=== PATIENT | female | born 1995 | race Caucasian/White ===

== ENCOUNTER → 2024-03-25 12:32 | Outpatient (CLI) | payer SELFPAY ==
[2024-03-25 13:17] LABS: Add Manual Diff / Slide Review NO; Basophils Absolute Auto 0 /uL (0-100); Basophils Percent Auto 0.1 % (0-2); Eosinophils Absolute Auto 100 /uL (0-450); Eosinophils Percent Auto 0.6 % (2-4); Hematocrit 39.9 % (36-46); Hemoglobin 13.5 g/dL (12.0-16.0); Lymphocytes Absolute Auto 2300 /uL (1100-4500); Lymphocytes Percent Auto 20.2 % (25-40); Mean Corpuscular HGB Conc 33.9 % (30-36); Mean Corpuscular Hemoglobin 28.8 PG (26-34); Mean Corpuscular Volume 84.8 fL (80-100); Monocytes Absolute Auto 600 /uL (0-900); Monocytes Percent Auto 5.3 % (3-14); Neutrophils Absolute Auto 8500 /uL (1500-7000); Neutrophils Percent Auto 73.8 % (50-75); Platelet Count 228 X10^3/uL (150-400); Red Cell Distribution Width 13.8 % (11.6-14.8); White Blood Cell Count 11.6 X10^3/uL (4.5-11.0)
[2024-03-25 14:03] LABS: Free T4, Direct Thyroxine 0.59 ng/dL (0.78-2.19)
[2024-03-25 14:17] LABS: Thyroid Stimulating Hormone 0.733 uIU/mL (0.47-4.68)
[2024-03-25 14:44] LABS: GTT (PREG) 1 Hour PP 50gm Dose 148 mg/dL (76-139)
== END ==
PROVIDERS: Referring Provider Family Medicine; Visit Provider Family Medicine
DX: Z34.80 Encounter for supervision of other normal pregnancy, unspecified trimester (principal); R94.6 Abnormal results of thyroid function studies
CPT/HCPCS: 36415; 82950; 84439; 84443; 85025

== ENCOUNTER → 2024-03-30 07:03 | Outpatient (CLI) | payer SELFPAY ==
[2024-03-30 08:35] LABS: Glucose Fasting Gestational 94 mg/dL (76-95)
[2024-03-30 10:37] LABS: Glucose 1 Hour Gest 180 mg/dL (76-180)
[2024-03-30 10:56] LABS: Glucose 2 Hour Gest 116 mg/dL (76-155)
[2024-03-30 11:16] LABS: Glucose Tol Interp,Gestational INTERPRETATION
[2024-03-30 12:04] LABS: Glucose 3 Hour Gest 135 mg/dL (76-140)
== END ==
LOC: LAB 07:08
PROVIDERS: Referring Provider Family Medicine; Visit Provider Family Medicine
DX: Z34.80 Encounter for supervision of other normal pregnancy, unspecified trimester (principal)
CPT/HCPCS: 36415; 82951; 82952

== ENCOUNTER → 2024-04-09 10:46 | Outpatient (CLI) | payer OTHER, SELFPAY ==
[2024-04-10 15:01] LABS: Strep Grp B PCR NEG for Grp B Strep
== END ==
PROVIDERS: Visit Provider Student in an Organized Health Care Education/Training Program
DX: Z34.83 Encounter for supervision of other normal pregnancy, third trimester (principal); Z3A.36 36 weeks gestation of pregnancy
CPT/HCPCS: 87653

== ENCOUNTER 2024-05-13 17:43 | Inpatient (IN) | payer OTHER, SELFPAY ==
[2024-05-13 18:37] VITALS: BP 129/87
[2024-05-13 18:54] LABS: Add Manual Diff / Slide Review NO; Basophils Absolute Auto 0 /uL (0-100); Basophils Percent Auto 0.2 % (0-2); Eosinophils Absolute Auto 100 /uL (0-450); Eosinophils Percent Auto 0.6 % (2-4); Hematocrit 39.2 % (36-46); Hemoglobin 13.5 g/dL (12.0-16.0); Lymphocytes Absolute Auto 2600 /uL (1100-4500); Lymphocytes Percent Auto 21.6 % (25-40); Mean Corpuscular HGB Conc 34.5 % (30-36); Mean Corpuscular Hemoglobin 28.8 PG (26-34); Mean Corpuscular Volume 83.5 fL (80-100); Monocytes Absolute Auto 400 /uL (0-900); Monocytes Percent Auto 3.2 % (3-14); Neutrophils Absolute Auto 9000 /uL (1500-7000); Neutrophils Percent Auto 74.4 % (50-75); Platelet Count 229 X10^3/uL (150-400); Red Blood Cell Count 4.69 X10^6/uL (4.0-5.2); Red Cell Distribution Width 13.9 % (11.6-14.8)
[2024-05-13] MEDS: miSOPROStoL 25 MCG TABLET VAG ×2 (19:30→23:30)
[2024-05-14] MEDS: miSOPROStoL 25 MCG TABLET VAG (03:30)
[2024-05-14] MEDS: ONDANSETRON 4 MG/2 ML INJ IV (05:57)
--- NOTE | 2024-05-14 07:57 | P.HPOB_ITS ---
OB HPI Date/Time Date of admission: 05/13/24 Date Patient Seen: 05/14/24 Time Patient Seen: 07:58 History of Present Condition Chief complaint: INDUCTION : 2 Para: 0 Estimated Date of Delivery: 05/07/24 Estimated Gestational Age (weeks): 41+0 Narrative: Luly Lama is a 28 year old female Comments: admitted for late term induction of labor. Indications Indication for induction OB: post dates History of Present care: good care Dating criteria: LMP confirmed by 1st trimester US Ultrasounds: normal mid trimester US Narrative: Ultrasound Ultrasound Details:: Dating US 09/20/23: morgan IUP c/w LMP dating Anatomy US 12/23/23: normal anatomy, posterior placenta, EFW 94%ile Specific Issues/Plans [x] cfDNA- low risk XX; [x] CF/SMA- neg/neg Obesity (pre-preg BMI 33) Abnormal 1hr, normal 3hr GTT Moved from [place], late transfer of care at 34wks Hx thyroid dysfunction--> normal TSH, low T4 Mario Assigned to Chiara Preadmission Labs Blood type: A (+) positive -: Antibody screen: negative, Cystic fibrosis screen: negative, GBS status: negative, HBsAG: negative, HIV: negative, HSV 1: unknown, HSV 2: unknown and RPR/VDLR: negative -: Chlamydia screen: not detected and Gonorrhea screen: not detected -: Rubella: immune and Varicella: immune HCT: 39.2 HCAB: negative PAP: Normal 1 hr GTT: 149 3 hr GTT: 3 hr (negative) Evaluation Evaluation Baseline heart rate: 130 Variability: Moderate (11-25) monitor accelerations: Present Monitor Decelerations: Absent Contraction Frequency (minutes): 3 Status: Category l Dilation (cm): 5 Effacement (%): 80 station: -3 [facility] Medical History (Updated 04/03/24 @ 08:40 by Linda Guadarrama DO) Shingles Thyroid dysfunction Surgical History (Updated 03/25/24 @ 10:11 by Ivory Martin RN) History of rhinoplasty History of tonsillectomy and adenoidectomy (~1999) Poth teeth extracted (~2013) H/O laparoscopy Family History (Updated 03/25/24 @ 10:15 by Ivory Mario, RN) Mother Hearing loss Diabetes mellitus Grandmother Diabetes mellitus Hearing loss Heart disease Heart attack Pacemaker Grandmother Cancer Social History marital status: number of children: 0 household members: spouse lives independently: Yes caregiver/support person: No housing: house pets and animals: Yes (2 dogs) education level: vocational occupational status: previously employed current occupational exposures/hazards: No special haily needs: No travel history: recent seatbelt use: always water heater temp set < 120 deg: Yes working smoke detector in home: Yes fire extinguisher in home: Yes carbon monox detector in home: Yes firearms in home: No do you feel safe at home: Yes (answered w/ present on speaker phone) Smoking Status: Never smoker second hand exposure: No alcohol intake: former substance use type: does not use during the past year weight has: increased > 10 lbs well-balanced diet: rarely or never daily servings fruits/ve-1 caffeine: Yes (occasional soft drinks) Type(s) of exercise: none Meds Home Medications and Allergies Home Medications Medication Instructions Recorded Confirmed Type cholecalciferol (vitamin D3) 25 25 mcg PO DAILY 03/25/24 05/13/24 History mcg (1,000 unit) capsule magnesium citrate 100 mg tablet 200 mg PO DAILY 03/25/24 05/13/24 History vitamin-ferrous sulfate tab PO 03/25/24 05/07/24 History 27 mg iron-folic acid 0.8 mg tablet Allergies Allergy/AdvReac Type Severity Reaction Status Date / Time No Known Drug Allergies Allergy Verified 05/13/24 20:27 Review of Systems Review of Systems ROS: Yes All systems reviewed with the patient and are negative except as otherwise documented OB Exam Vital signs Blood Pressure: 129/86 Pulse Rate: 79 Respiratory Rate: 16 Temperature: 96.6 F HENMT Head: normal to inspection Resp Effort & Inspection: normal respiratory effort and able to speak in complete sentences Cardio Rate: regular rate Rhythm: regular rhythm Extremities Lower extremity: Yes normal to inspection GI Other: gravid, nontender, nondistended Objective Labs 05/13/24 18:27 Labs: Laboratory Results - last 24 hr 05/13/24 18:27 WBC 12.0 H RBC 4.69 Hgb 13.5 Hct 39.2 MCV 83.5 MCH 28.8 MCHC 34.5 RDW 13.9 Plt Count 229 Neut % (Auto) 74.4 Lymph % (Auto) 21.6 L [place] % (Auto) 3.2 Eos % (Auto) 0.6 L Baso % (Auto) 0.2 Neut # (Auto) 9000 H Lymph # (Auto) 2600 [place] # (Auto) 400 Eos # (Auto) 100 Baso # (Auto) 0 Blood Type A Positive Antibody Screen Negative Assessment and Plan Assessment and Plan Assessment and Plan narrative: 28yo at 41+0wks admitted for late term induction of labor. -CBC, T&S on admission -continuous EFM -epidural PRN -GBS neg, ppx not indicated -PPH risk low -VTE risk low, SCDs with epidural -anticipate L&D Counseling: Common procedures and interventions related to the management of were explained to the patient, including assistance at vaginal delivery with episiotomy, vacuum, or forceps, use of medications to stop premature labor or induce labor, and assessment including auscultation (listening to the heart), use of electronic monitoring (external and / or internal), and use of scalp electrode and/or intrauterine pressure catheter.? It was also explained that approximately 20-30% of mothers have a need for delivery during their labor course. It was explained to the patient that , labor and delivery are ordinarily normal physiological events and can be expected to provide a healthy outcome for mother and baby in the majority of cases. However, there are complications that may arise during , labor, and delivery, such as: hemorrhage requiring administration of blood and/or blood products, surgical intervention, possibly even hysterectomy for life-saving purposes; possibility of infection requiring antibiotics, prolonged hospital stay, and rarely surgical intervention; possibility of blood clots;? possibility of retained products of conception requiring surgical intervention;? possibility of serious tears or injury to the vagina, cervix, perineum, or rectum;? possibility of injury to abdominal structures if delivery is required;? and rarely maternal or may occur. Time-Based Coding :: [30min ] spent with patient and on the chart (including review of chart, obtaining history, exam, reviewing outside data, placing orders, documenting exam and treatment plan, and counseling patient) on [05/14/24].
[2024-05-14 08:08] VITALS: BP 129/86; PULSE 79; RESP 16; TEMP 35.9
--- NOTE | 2024-05-14 09:11 | P.PCN_ITS ---
Regional Block Pre-procedure PMH/ROS narrative: 28yr old requesting epidural for labor pain. Negative medical history. BMI 37. PSH/Anesthesia history narrative: rhinopplasty, laparoscopy, T&A Labs: Hct 39.2 % (36-46) 05/13/24 18:27 Plt Count 229 X10^3/uL (150-400) 05/13/24 18:27 Medications: Current Medications Generic Name Dose Route Start Last Admin Trade Name Freq PRN Reason Stop Dose Admin Acetaminophen 650 mg 05/13/24 18:37 Acetaminophen 325 Mg Tablet PO Q4HR PRN Fever/Mild Pain (1-3) Calcium Carbonate 1,000 mg 05/13/24 21:02 Calcium Carbonate 500 Mg Tab PO Q2HR PRN Dyspepsia Carboprost Tromethamine 250 mcg 05/13/24 21:02 Carboprost 250 Mcg/Ml Ampul IM Q90M PRN Bleeding Fentanyl 50 mcg 05/13/24 21:02 Fentanyl 100 Mcg/2 Ml Inj IV Q1H PRN Pain, Moderate (4-6) Lactated Ringer's 1,000 mls @ 100 mls/hr 05/13/24 18:45 Lactated Ringers IV CONT ALESSANDRO Oxytocin/Lactated Ringer's 30 unit in 500 mls @ 200 mls/hr 05/13/24 21:02 Oxytocin Premix IV CONT PRN Bleeding Protocol Tranexamic Acid 1,000 mg/ 100 mls @ 600 mls/hr 05/13/24 21:02 Sodium Chloride IV NOW PRN Bleeding Oxytocin/Lactated Ringer's 30 unit in 500 mls @ 2 mls/hr 05/13/24 21:15 Oxytocin Premix IV TITRATE ALESSANDRO Protocol 2 MILLIUNIT/MIN Lidocaine HCl 20 ml 05/13/24 21:02 Lidocaine 1% 20 Ml INJ INTRA-OP PRN Post Delivery Methylergonovine Maleate 0.2 mg 05/13/24 21:02 Methylergonovine 0.2 Mg Tablet PO Q6HR PRN Heavy Bleeding Methylergonovine Maleate 0.2 mg 05/13/24 21:02 Methylergonovine 0.2 Mg/Ml Vial IM NOW PRN Bleeding Mineral Oil 30 ml 05/13/24 21:02 Mineral Oil 30 Ml Udc TOP PRN PRN Version Misoprostol 25 mcg 05/13/24 18:45 05/14/24 03:30 Misoprostol 25 Mcg Tablet VAG 25 mcg Q4H ALESSANDRO Administration Misoprostol 800 mcg 05/13/24 21:02 Misoprostol 200 Mcg Tablet MS NOW PRN Bleeding Misoprostol 400 mcg 05/13/24 21:02 Misoprostol 200 Mcg Tablet SL NOW PRN Bleeding Naloxone HCl 0.2 mg 05/13/24 21:02 Naloxone 0.4 Mg/Ml Vial IV Q2MIN PRN Opiate Reversal Ondansetron HCl 4 mg 05/13/24 21:02 05/14/24 05:57 Ondansetron 4 Mg/2 Ml Inj IV 4 mg Q4HR PRN Administration Nausea And Vomiting Oxytocin 10 unit 05/13/24 21:02 Oxytocin 10 Unit/Ml Vial IM NOW PRN Bleeding Allergies: Allergies Allergy/AdvReac Type Severity Reaction Status Date / Time No Known Drug Allergies Allergy Verified 05/13/24 20:27 Procedure Insertion date: 05/14/24 Insertion time: 08:40 Prep/Local: 1% lidocaine (chloroprep) Interspace: L4-5 Patient position: sitting Needle: 18 gauge Raphael Loss of resistance with: saline PALLAVI at (cm): 8 Catheter placed at SKIN (cm): 15 Catheter in SPACE (cm): 7 Insertion: No Blood, No Paresthesia with insertion, No Paresthesia with injection and No Test dose reaction Initial Medications TEST DOSE time: 08:42 BOLUS DOSE time: 08:50 BOLUS DOSE (mL): 5 BOLUS DOSE med: 0.25% bupivacaine Infusion INFUSION: 0.125% bupivacaine and with fentanyl 2 mcg/mL Initial rate (mL/hr): 12 Subsequent interventions: 5cc 0.25% marcaine at 0921 slight decrease in c ontraction pain Post-procedure Anesthesia date START: 05/14/24 Anesthesia time START: 08:15 Anesthesia date END: 05/14/24 Anesthesia time END: 13:24 Post-procedure Anesthesia Assessment: Yes CV function: HR/BP stable, Yes Resp function: RR/sat/airway adequate, Yes Post-op hydration adequate, Yes Pain control adequate, Yes Nausea & vomiting absent, Yes Temperature > 36 C and Yes Mental status appropriate
--- NOTE | 2024-05-14 09:23 | PM.AN.REGBLK ---
Regional Block Pre-procedure Labs: Hct 39.2 % (36-46) 05/13/24 18:27 Plt Count 229 X10^3/uL (150-400) 05/13/24 18:27 Medications: Current Medications Generic Name Dose Route Start Last Admin Trade Name Pjq PRN Reason Stop Dose Admin Acetaminophen 650 mg 05/13/24 18:37 Acetaminophen 325 Mg Tablet PO Q4HR PRN Fever/Mild Pain (1-3) Calcium Carbonate 1,000 mg 05/13/24 21:02 Calcium Carbonate 500 Mg Tab PO Q2HR PRN Dyspepsia Carboprost Tromethamine 250 mcg 05/13/24 21:02 Carboprost 250 Mcg/Ml Ampul IM Q90M PRN Bleeding Fentanyl 50 mcg 05/13/24 21:02 Fentanyl 100 Mcg/2 Ml Inj IV Q1H PRN Pain, Moderate (4-6) Lactated Ringer's 1,000 mls @ 100 mls/hr 05/13/24 18:45 Lactated Ringers IV CONT ALESSANDRO Oxytocin/Lactated Ringer's 30 unit in 500 mls @ 200 mls/hr 05/13/24 21:02 Oxytocin Premix IV CONT PRN Bleeding Protocol Tranexamic Acid 1,000 mg/ 100 mls @ 600 mls/hr 05/13/24 21:02 Sodium Chloride IV NOW PRN Bleeding Oxytocin/Lactated Ringer's 30 unit in 500 mls @ 2 mls/hr 05/13/24 21:15 Oxytocin Premix IV TITRATE ALESSANDRO Protocol 2 MILLIUNIT/MIN Lidocaine HCl 20 ml 05/13/24 21:02 Lidocaine 1% 20 Ml INJ INTRA-OP PRN Post Delivery Methylergonovine Maleate 0.2 mg 05/13/24 21:02 Methylergonovine 0.2 Mg Tablet PO Q6HR PRN Heavy Bleeding Methylergonovine Maleate 0.2 mg 05/13/24 21:02 Methylergonovine 0.2 Mg/Ml Vial IM NOW PRN Bleeding Mineral Oil 30 ml 05/13/24 21:02 Mineral Oil 30 Ml Udc TOP PRN PRN Version Misoprostol 25 mcg 05/13/24 18:45 05/14/24 03:30 Misoprostol 25 Mcg Tablet VAG 25 mcg Q4H ALESSANDRO Administration Misoprostol 800 mcg 05/13/24 21:02 Misoprostol 200 Mcg Tablet CO NOW PRN Bleeding Misoprostol 400 mcg 05/13/24 21:02 Misoprostol 200 Mcg Tablet SL NOW PRN Bleeding Naloxone HCl 0.2 mg 05/13/24 21:02 Naloxone 0.4 Mg/Ml Vial IV Q2MIN PRN Opiate Reversal Ondansetron HCl 4 mg 05/13/24 21:02 05/14/24 05:57 Ondansetron 4 Mg/2 Ml Inj IV 4 mg Q4HR PRN Administration Nausea And Vomiting Oxytocin 10 unit 05/13/24 21:02 Oxytocin 10 Unit/Ml Vial IM NOW PRN Bleeding Allergies: Allergies Allergy/AdvReac Type Severity Reaction Status Date / Time No Known Drug Allergies Allergy Verified 05/13/24 20:27
--- NOTE | 2024-05-14 12:02 | PM.OBPNLAB ---
Date/Time Date Patient Seen: 05/14/24 Time Patient Seen: 11:45 Pain Control Pain control: tolerating well and epidural Pelvic Exam Dilation (cm): 10 Effacement (%): 100 station: 0 Comments: AROM attempted, minimal fluid returned Contractions Contraction pattern: Regular Status status: Category ll Heart Rate Baseline: 125 Monitor Accelerations: Present Monitor Decelerations: Early, Episodic and Late Monitor Variability: Moderate Assessment and Plan Assessment: active labor Plan: continuous present management Comments: Anticipate starting pushing efforts in the next hour.
--- NOTE | 2024-05-14 13:55 | P.PCNOB_ITS ---
Labor & Delivery Delivery date: 05/14/24 Cervical ripening method: per misoprostal protocol Delivery monitor: external FHT Route of delivery: L&D Laceration Description: Perineal - 2nd Degree Delivery repair: vicryl Estimated blood loss (mL): 200 Anesthesia Type: Epidural Complications: none Narrative: The patient progressed to C/C/+1 with cytotec x3 doses and epidural anesthesia. After approximately 45min of maternal pushing efforts, the infant delivered in OA position and restituted ROT. The anterior shoulder delivered with gentle downward pressure. The posterior shoulder and rest of body delivered with ease. The cord was doubly clamped and cut after a 60sec delay with the placed on maternal abdomen. The placenta delivered spontaneously and was intact with a 3-vessel cord. The fundus was noted to be firm with bimanual massage and pitocin. Inspection of the cervix, vagina, and perineum was notable for a 2nd degree perineal laceration. Repair was performed using 3-0 Vicryl in a running, unlocked fashion. Skin was reapproximated in a running, subcuticular fashion. At the end of the repair, all tissues noted to be hemostatic. All sponges were removed from the vagina. The patient tolerated delivery well and remained in the labor room with the infant at the bedside. [place] Baby 1: Infant gender: Female Presentation: vertex score (1 min): 9 score (5 min): 9 weight: 8 lb 7.205 oz Plan for aftercare: Routine care
[2024-05-14] MEDS: ACETAMINOPHEN 325 MG TABLET 650 MG PO (19:38)
[2024-05-14] MEDS: IBUPROFEN 600 MG TABLET PO (19:38)
[2024-05-15] MEDS: IBUPROFEN 600 MG TABLET PO ×2 (02:24→08:16)
[2024-05-15] MEDS: ACETAMINOPHEN 325 MG TABLET 650 MG PO ×2 (02:25→08:17)
[2024-05-15] MEDS: DOCUSATE 100 MG CAPSULE PO (08:17)
[2024-05-15] MEDS: PRENATAL VIT,CALC/IRON/FOLIC 1 TABLET 1 TAB PO (08:17)
--- NOTE | 2024-05-15 13:03 | PM.OBDS.1 ---
Discharge Providers Provider Date of admission: 05/13/24 17:43 Discharge Date: 05/15/24 Primary care physician: Bhavya BARRIOS Provider Consults: 05/13/24 21:02 Consult to Anesthesiology Urgent Comment: Consulting Provider: Anesthesiologist Reason for consultation: Epidural 05/15/24 13:54 Consult to Child Welfare Worker Routine Comment: Discharge provider: Linda Guadarrama DO Summary Hospital Course Date Patient Seen: 05/15/24 Time Patient Seen: 13:05 Diagnoses: Late term gestation at 41+0wks Obesity in Hospital Course: 28yo admitted at 40+6wks for induction of labor. She underwent an uncomplicated induction, and progressed to an uncomplicated vaginal delivery productive of a viable female infant. Her course was unremarkable. By day of discharge, she was ambulating, tolerating regular diet, voiding spontaneously, with minimal lochia. Thus she was discharged to home on day #1. Peripartum Data Delivery Method: Natural Vaginal Laceration Description: Perineal - 2nd Degree Procedures: External monitoring Induction of labor Spontaneous vaginal delivery Repair of obstetric laceration complications: none Discharge Diagnosis (1) Vaginal delivery: Status: Acute (2) Thyroid dysfunction in : Status: Acute (3) Obesity affecting : Status: Acute Status at Discharge Cognitive/behavioral status at discharge: oriented Functional status at discharge: independent ambulation Overall status at discharge: patient is progressing back to baseline Time Spent with Patient Time attestation: Total time spent providing and/or coordinating discharge services: Time spent: Less than 30 minutes Objective Labs 05/13/24 18:27 Exam Vital Signs (past 8 hours): vitals reviewed in OBIX, within normal parameters Const General: cooperative, healthy appearing, comfortable and No acute distress Resp Effort & Inspection: normal respiratory effort GI Inspection: normal to inspection Other: fundus firm and nontender at U-2 Skin General: no rashes or lesions noted Neuro General: patient alert and patient awake Extrem General: normal to inspection, no pedal edema and no calf tenderness Psych Mood: congruent mood Affect: normal affect Discharge Plan Discharge Plan Patient Disposition: Home Provider Discharge Comment: Take ibuprofen 600 mg every 6 hours and/or acetaminophen 650 mg every 6 hours as needed for pain. Avoid placing anything in the vagina for 6 weeks. Avoid tub baths for 2 weeks. Discharge orders & Medications Prescriptions: Continued vit-ferrous sulfat-FA 27 mg iron- 0.8 mg tablet PO cholecalciferol (vitamin D3) 25 mcg (1,000 unit) capsule 25 mcg PO DAILY magnesium citrate 100 mg tablet 200 mg PO DAILY Follow up/Referrals: Linda Guadarrama DO [Physician] - 06/26/24 1:30 pm (Follow up w/ Dr. Guadarrama on Saturday, June 26, 2024 @1:30pm for 6 week follow up appointment.) Diet/Activity/Treatments Diet: Diet as Tolerated Activity: As tolerated. Skin/Wound/Dressing Care Report to your healthcare provider any signs of infection, such as:: chills, fever, increased pain, unusual drainage and unusual redness Visit Report/Discharge Packet Instructions: DI for Labor and Delivery, Vaginal Stand Alone Forms: Patient Portal/API, Stroke Signs & Symptoms Discharge Data Primary Care Provider: Bhavya Betancourt
== END 2024-05-15 15:35 | disposition home or self-care (01) | DRG 807 ==
PROVIDERS: Student in an Organized Health Care Education/Training Program; Admitting Provider Obstetrics & Gynecology; Referring Provider Obstetrics & Gynecology; Visit Provider Obstetrics & Gynecology
DX: O48.0 Post-term pregnancy (principal); Z37.0 Single live birth; Z3A.41 41 weeks gestation of pregnancy; O76 Abnormality in fetal heart rate and rhythm complicating labor and delivery; O70.1 Second degree perineal laceration during delivery
CPT/HCPCS: 36415; 59050; 59200; 85025; 86850; 86900; 86901; G0379; J2405

== ENCOUNTER → 2024-10-31 12:02 | Outpatient (CLI) | payer OTHER, SELFPAY ==
[2024-10-31 13:10] LABS: Add Manual Diff / Slide Review NO; Basophils Absolute Auto 100 /uL (0-100); Basophils Percent Auto 0.6 % (0-2); Eosinophils Absolute Auto 200 /uL (0-450); Eosinophils Percent Auto 2.3 % (2-4); Hematocrit 39.7 % (36-46); Hemoglobin 13.2 g/dL (12.0-16.0); Lymphocytes Absolute Auto 3300 /uL (1100-4500); Lymphocytes Percent Auto 35.6 % (25-40); Mean Corpuscular HGB Conc 33.3 % (30-36); Mean Corpuscular Hemoglobin 26.1 PG (26-34); Mean Corpuscular Volume 78.4 fL (80-100); Monocytes Absolute Auto 300 /uL (0-900); Monocytes Percent Auto 3.7 % (3-14); Neutrophils Absolute Auto 5400 /uL (1500-7000); Neutrophils Percent Auto 57.8 % (50-75); Platelet Count 310 X10^3/uL (150-400); Red Blood Cell Count 5.07 X10^6/uL (4.0-5.2); Red Cell Distribution Width 14.3 % (11.6-14.8); White Blood Cell Count 9.4 X10^3/uL (4.5-11.0)
[2024-10-31 13:34] LABS: Free T4, Direct Thyroxine 0.45 ng/dL (0.78-2.19)
[2024-10-31 13:48] LABS: Thyroid Stimulating Hormone 7.92 uIU/mL (0.47-4.68)
[2024-11-01 05:12] LABS: Triiodothyronine T3 Total 84 ng/dL (71-180)
[2024-11-02 11:39] LABS: Anti Thyroglobulin Antibody 485.4 IU/mL (0.0-0.9); Thyroid Peroxidase Antibodies >600 IU/mL (0-34)
== END ==
PROVIDERS: PCP Family Medicine; Referring Provider Family Medicine; Visit Provider Family Medicine
DX: E04.9 Nontoxic goiter, unspecified (principal); R79.89 Other specified abnormal findings of blood chemistry
CPT/HCPCS: 36415; 84439; 84443; 84480; 85025; 86376; 86800

== ENCOUNTER → 2024-11-12 14:07 | Outpatient (CLI) | payer OTHER, SELFPAY ==
--- NOTE | 2024-11-12 14:08 | DI.US.S_ITS ---
PROCEDURE: US THYROID INDICATIONS: Thyroid enlargement TECHNIQUE: Real-time scanning was performed of the thyroid gland, with image documentation. COMPARISON: None. FINDINGS: Thyroid: Right lobe measures 5.6 x 2.3 x 1.8 cm. Left lobe measures 3.6 x 1.5 x 1.4 cm. Isthmus is 0.3 cm thick. Echotexture is heterogeneous. No discrete nodules identified. Prominent left sided lymph node measuring up to 1 centimeter short axis. Normal fatty hilum. IMPRESSION: Diffuse heterogeneity of the thyroid gland without discrete nodule. Recommend correlation with thyroid function test. Right thyroid gland is asymmetrically enlarged compared to the left. Prominent left cervical lymph node measuring 1 centimeter short axis with normal fatty hilum. Dictated by: Macario Orozco M.D. on 11/13/2024 at 11:50 Approved by: Macario Orozco M.D. on 11/13/2024 at 11:54
== END ==
PROVIDERS: Referring Provider Family Medicine; Visit Provider Family Medicine
DX: E04.9 Nontoxic goiter, unspecified (principal); R79.89 Other specified abnormal findings of blood chemistry
CPT/HCPCS: 76536

== ENCOUNTER → 2025-02-05 09:24 | Outpatient (CLI) | payer OTHER, SELFPAY ==
[2025-02-05 10:25] LABS: HEMOLYSIS < 15 (0-50); Iron 53 ug/dL (37-170)
[2025-02-05 10:39] LABS: Percent Iron Saturation 15 % (15-50); Total Iron Binding Capacity 347 ug/dL (265-497); Transferrin 307 mg/dL (206-381)
[2025-02-05 10:57] LABS: TSH w/ Reflex to FT4 0.67 uIU/mL (0.47-4.68)
[2025-02-05 11:03] LABS: Ferritin 17 ng/mL (6-137)
== END ==
PROVIDERS: PCP Family Medicine; Referring Provider Family Medicine; Visit Provider Family Medicine
DX: E04.9 Nontoxic goiter, unspecified (principal); N92.0 Excessive and frequent menstruation with regular cycle; N80.9 Endometriosis, unspecified; R79.89 Other specified abnormal findings of blood chemistry; R73.09 Other abnormal glucose
CPT/HCPCS: 36415; 82728; 83036; 83540; 83550; 84443

== ENCOUNTER → 2025-06-25 09:08 | Outpatient (CLI) | payer OTHER, SELFPAY ==
[2025-06-25 12:21] LABS: Free T3, Triiodothyronine Free 4.50 pg/mL (2.77-5.27); T4 Total Thyroxine 7.55 ug/dL (5.5-11.0)
[2025-06-25 12:34] LABS: TSH w/ Reflex to FT4 0.24 uIU/mL (0.47-4.68)
[2025-06-25 13:01] LABS: Free T4, Direct Thyroxine 0.93 ng/dL (0.78-2.19)
[2025-06-28 16:12] LABS: Anti Thyroglobulin Antibody 345.5 IU/mL (0.0-0.9)
== END ==
PROVIDERS: PCP Family Medicine; Referring Provider Family Medicine; Visit Provider Family Medicine
DX: E61.1 Iron deficiency (principal); E06.3 Autoimmune thyroiditis; E04.9 Nontoxic goiter, unspecified
CPT/HCPCS: 36415; 84436; 84439; 84443; 84481; 86376; 86800

== ENCOUNTER → 2025-08-05 10:25 | Outpatient (CLI) | payer OTHER, SELFPAY ==
[2025-08-05 11:56] LABS: Thyroid Stimulating Hormone 0.779 uIU/mL (0.47-4.68)
== END ==
PROVIDERS: PCP Family Medicine; Referring Provider Family Medicine; Visit Provider Family Medicine
DX: E06.3 Autoimmune thyroiditis (principal); E04.9 Nontoxic goiter, unspecified
CPT/HCPCS: 84443

== ENCOUNTER → 2025-09-08 14:18 | Outpatient (CLI) | payer OTHER, SELFPAY | LOC: LAB 14:18 | PROVIDERS: PCP Family Medicine; Visit Provider Nurse Practitioner Family | DX: J02.9 Acute pharyngitis, unspecified (principal) | CPT/HCPCS: 87070 ==